=== PATIENT | female | born 1975 | race Caucasian/White ===

== ENCOUNTER 2017-05-27 19:01 | Emergency (ER) | payer SELFPAY ==
--- NOTE | 2017-05-27 19:03 | ED.PDOC ---
History of Present Illness - General Time Seen by Provider: 05/27/17 19:02 Source: patient Exam Limitations: no limitations - History of Present Illness Initial Comments: the patient is a 41-year-old female presenting to the emergency room secondary to symptoms of nausea and mild right flank pain that started early this morning. The patient has a history of recurrent urinary tract infections and pyelonephritis with associated vesicular ureteralreflux. She only has one kidney remaining. No fevers. No vomiting. Her oral intake has been good. No actual costovertebral angle tenderness on exam. No significant vaginal discharge. Timing/Duration: 24 hours Severity: moderate Improving Factors: nothing Worsening Factors: nothing Associated Symptoms: malaise, nausea/vomiting Allergies/Adverse Reactions: Allergies Sulfa Drugs Allergy (Verified 11/28/15 17:17) Home Medications: Ambulatory Orders Dicyclomine HCl [Bentyl] 20 mg PO TID #15 tab 11/28/15 Ciprofloxacin [Cipro] 250 mg PO BID #14 tab 05/27/17 Review of Systems - Review of Systems Constitutional: States: malaise EENTM: States: no symptoms reported Respiratory: States: no symptoms reported Cardiology: States: no symptoms reported Gastrointestinal/Abdominal: States: nausea. Denies: constipation, diarrhea Genitourinary: States: frequency Musculoskeletal: States: back pain Skin: States: no symptoms reported Neurological: States: no symptoms reported Endocrine: States: no symptoms reported All other Systems: No Change from Baseline Past Medical History (General) - Patient Medical History Hx Seizures: Yes Hx Stroke: No Hx Dementia: No Hx Asthma: No Hx of COPD: No Hx Cardiac Disorders: Yes - dylipidema Hx Congestive Heart Failure: No Hx Pacemaker: No Hx Hypertension: No Hx Thyroid Disease: No Hx Diabetes: No Hx Gastroesophageal Reflux: No Hx Renal Disease: Yes - left removal due to reflux Hx Cancer: No Hx of HIV: No Hx Hepatitis C: No Hx MRSA: Yes MRSA Source:: Wound - Vaccination History Hx Tetanus, Diphtheria Vaccination: No Hx Influenza Vaccination: No Hx Pneumococcal Vaccination: No - Social History Hx Tobacco Use: Yes Hx Chewing Tobacco Use: No Hx Alcohol Use: No Hx Substance Use: No Hx Substance Use Treatment: No Hx Depression: No Hx Physical Abuse: No Hx Emotional Abuse: No Hx Suspected Abuse: No - Female History Patient : No Family Medical History - Family History Mother Living Status: Still Living Hx Family Hypertension: Yes Hx Cardiac Disease: Yes - dyslipidemia Hx Family;Other: copd Father Living Status: Still Living Hx Family Hypertension: Yes Hx Cardiac Disease: Yes - dyslipidemia, 6 bypass Hx Family Diabetes: Yes Hx Family;Other: seizures Brother Living Status: Still Living Hx Family;Other: seizures Physical Exam - Physical Exam General Appearance: Alert, Comfortable, No apparent distress Eye Exam: bilateral normal Ears, Nose, Throat: hearing grossly normal, normal ENT inspection, normal pharynx Neck: non-tender, full range of motion, supple Respiratory: chest non-tender, lungs clear, normal breath sounds, no respiratory distress, no accessory muscle use Cardiovascular/Chest: normal peripheral pulses, regular rate, rhythm, no edema Peripheral Pulses: radial,right: 2+, radial,left: 2+, dorsalis pedis,right: 2+, dorsalis pedis,left: 2+ Gastrointestinal/Abdominal: non tender, soft Rectal Exam: deferred Back Exam: normal inspection, no CVA tenderness, no vertebral tenderness Extremity: normal range of motion, non-tender, normal inspection, no pedal edema , normal capillary refill 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 Urinalysisdoes indicate a bacterial urinary tract infection as well as Trichomonas in the urine. the patient is receiving a dose of metronidazole here for treatment of Trichomonas. Her significant other also needs to be tested and treated. The patient is also being started on ciprofloxacin for the urinary tract infection. Given her history of chronic renal insufficiency the patient will be placed on ciprofloxacin 250 mg by mouth twice a day for 7 days. She does need a repeat urinalysis in a couple of days to make sure her urine is clearing. She also needs a test of cure for the Trichomonas and 2-3 weeks. She needs to keep herself well-hydrated. ER warnings were given for any significant worsening. Her primary care doctor can follow up for the culture result on the urine in 2- 3 days as well to make sure an antibiotic change does not need to occur. - Results/Orders Results/Orders: Laboratory Tests 05/27/17 19:40 Urine Color Yellow Urine Appearance Cloudy Urine pH 5.5 Ur Specific [place] >= 1.030 Urine Protein Trace Urine Glucose (UA) Negative Urine Ketones Negative Urine Blood Small H Urine Nitrite Positive H Urine Bilirubin Negative Urine Urobilinogen 0.2 Ur Leukocyte Esterase Small H Urine RBC 5-10 H Urine WBC 10-20 H Ur Epithelial Cells 5-10 Amorphous Sediment 2+ Urine Bacteria 3+ H Urine Mucus Large Urine Trichomonas 1-3 H Departure - Departure Clinical Impression: Cystitis, Trichomonal cystitis Disposition: Discharge to Home or Self Care Condition: Fair Instructions: Trichomoniasis, DI for Acute Cystitis Diet: regular diet Activity: increase activity as tolerated Prescriptions: Ciprofloxacin [Cipro] 250 mg PO BID #14 tab Home Medications: Ambulatory Orders Dicyclomine HCl [Bentyl] 20 mg PO TID #15 tab 11/28/15 Ciprofloxacin [Cipro] 250 mg PO BID #14 tab 05/27/17 Additional Instructions: the patient is a 41-year-old female presenting to the emergency room secondary to symptoms of a recurrent urinary tract infection. Urinalysisdoes indicate a bacterial urinary tract infection as well as Trichomonas in the urine. the patient is receiving a dose of metronidazole here for treatment of Trichomonas. Her significant other also needs to be tested and treated. The patient is also being started on ciprofloxacin for the urinary tract infection. Given her history of chronic renal insufficiency the patient will be placed on ciprofloxacin 250 mg by mouth twice a day for 7 days. She does need a repeat urinalysis in a couple of days to make sure her urine is clearing. She also needs a test of cure for the Trichomonas and 2-3 weeks. She needs to keep herself well-hydrated. ER warnings were given for any significant worsening. Her primary care doctor can follow up for the culture result on the urine in 2- 3 days as well to make sure an antibiotic change does not need to occur.
[2017-05-27] MEDS ORDERED: ONDANSETRON ODT 8 MG TAB SL ONE (19:23)
[2017-05-27 19:27] VITALS: BP 114/78; TEMP 98.9; O2SAT 100
[2017-05-27] MEDS ORDERED: FLUCONAZOLE 100 MG TAB PO ONE (20:17)
[2017-05-27] MEDS ORDERED: metroNIDAZOLE 500 MG TAB PO ONE (20:17)
[2017-05-27] MEDS ORDERED: CIPROFLOXACIN 500 MG TAB PO ONE (20:17)
[2017-05-27] MEDS ORDERED: ALUMINUM & MAGNESIUM HYDROXIDE 30 ML UD PO ONE (20:18)
== END 2017-05-27 20:45 | disposition home or self-care (01) ==
LOC: ER 19:01
DX: A59.03 Trichomonal cystitis and urethritis (principal); E87.5 Hyperkalemia; N28.9 Disorder of kidney and ureter, unspecified; Z90.5 Acquired absence of kidney; Z86.14 Personal history of Methicillin resistant Staphylococcus aureus infection; Z87.891 Personal history of nicotine dependence; Z88.2 Allergy status to sulfonamides